=== PATIENT | female | born 1945 | race Caucasian/White ===

== ENCOUNTER → 2019-04-16 | Outpatient (CLI) | payer MEDICARE, OTHER | LOC: M.RAD 15:40 | DX: M19.071 Primary osteoarthritis, right ankle and foot (principal) ==

== ENCOUNTER → 2021-12-28 | Outpatient (CLI) | payer MEDICARE | LOC: M.RAD 10:53 | PROVIDERS: ATTEND Emergency Medicine | DX: M17.12 Unilateral primary osteoarthritis, left knee (principal); M25.762 Osteophyte, left knee; M79.89 Other specified soft tissue disorders; M19.072 Primary osteoarthritis, left ankle and foot ==